=== PATIENT | male | born 1965 | race Caucasian/White ===

== ENCOUNTER 2017-02-23 11:44 | Emergency (ER) | payer BC, OTHER ==
[~2017-02-23] VITALS: Ht 177.8 cm; Wt 82.0 kg
[2017-02-23 11:49] VITALS: Ht 177.8 cm; Wt 82.0 kg
[2017-02-23] MEDS ORDERED: ACETAMINOPHEN 500 MG TAB PO STA (12:19)
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
--- NOTE | 2017-02-23 13:34 | RADRPT ---
PROCEDURE: CT Brain without contrast. CLINICAL INDICATION: Pain, headache TECHNIQUE: Routine CT scan of the brain was performed on a high resolution multi detector scanner without intravenous contrast. One or more of the following dose reduction techniques were used: Auto mated exposure control; Adjustment of the mA and/or kV according to patient size; Use of iterative r econstruction technique. CTDI = 44 mGy. DLP = 220 mGy-cm. COMPARISON: No prior relevant examinations are available for comparison. FINDINGS: Hemorrhage: No evidence of intracranial hemorrhage. Acute ischemic changes: No evidence of acute ischemic changes. Mass effect: None. Parenchymal volume: Within normal limits for age. Ventricular system: Concordant with parenchymal volume. Chronic changes: Parenchymal attenuation is within normal limits. Extracranial soft tissues: Unremarkable. Calvarium: No fractures. Paranasal sinuses: Visualized paranasal sinuses are clear. Mastoid air cells: Visualized mastoid air cells are clear. IMPRESSION: No acute intracranial abnormalities. Normal appearance of the brain parenchyma. RPTAT: AADD .Balaji Cary MD, MD Date Time Electronically viewed and signed by .Balaji Cary MD, on 02/23/2017 13:33 .B/
--- NOTE | 2017-02-23 13:47 | RADRPT ---
PROCEDURE: XR Left Shoulder. CLINICAL INDICATION: Left shoulder pain TECHNIQUE: 3 views of the left shoulder are available for review. COMPARISON: None available FINDINGS: There is no acute fracture. Alignment is normal. Joint spaces are preserved. Soft tissues are grossly unremarkable. IMPRESSION: 1. No radiographic evidence of acute osseous abnormality of the left shoulder. RPTAT: UU .Reyes Calix MD, MD Date Time Electronically viewed and signed by .Reyes Calix MD, on 02/23/2017 13:46 .K/
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
[2017-02-23] MEDS ORDERED: ACET500C5 PO (14:00)
[2017-02-23] MEDS ORDERED: IBUP-1542 PO (14:00)
[2017-02-23 14:09] VITALS: BP 115/75; PULSE 76; RESP 19; TEMP 98.2
== END 2017-02-23 14:10 | disposition home or self-care (01) ==
LOC: FTE 11:44
DX: S43.402A Unspecified sprain of left shoulder joint, initial encounter (principal); S33.5XXA Sprain of ligaments of lumbar spine, initial encounter; R51 Headache; V49.40XA Driver injured in collision with unspecified motor vehicles in traffic accident, initial encounter
CPT/HCPCS: 70450; 72100; 72170; 73030; Z7502; Z7610